=== PATIENT | female | born 1990 | race Hispanic/Latino ===

== ENCOUNTER 2022-10-05 17:46 | Emergency (ER) | payer OTHER ==
--- OUTSIDE RECORDS SUMMARY | 2022-10-05 17:49 | XMS REPORT | Continuity of Care Document ---
:1990 Author Organization [facility] t Address [address] [place] [address] Care Team Providers Name Role Phone Anna Alcaraz Primary Care Physician [phone] Anna Alcaraz Attending Clinician [phone] ANNA BRADLEY Attending Clinician Unavailable Doctor Unassigned, [place] Attending Clinician Unavailable GLENDA SCOTT Attending Clinician Unavailable Payers Payer Name Policy Type Policy Number Effective Date Expiration Date S ource Problems Condition Condition Condition Status Onset Resolution Last Treating Co mments Source Name Details Category Date Date Treatment Clinician Date Former Former Disease Active Univers tobacco tobacco 05-04 ity of use use 00:00: [address] Chlamydia Chlamydia Disease Active Uni vers trachomati trachomati 05-04 it y of s s 00:00: [place] infection infection 00 Medi bakari of lower of lower Branch genitourin genitourin amairani sites amairani sites Contracept Contracept Disease Active U nivers bernadette bernadette 8 [place] management [place] Over Over Disease Active Univers weight weight 8 ity of 00:00: [place] 00 [facility] Branch Need for Need for Disease Active Unive rs HPV HPV 8 [place] of vaccin[place] Well woman Well woman Disease Active Overview : Univers exam exam 8-10 Formattin ity of 00:00: g of this [place] 00 note Medical might be Branch different from the original. 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 Social History Social Habit Start Date Stop Date Quantity Comments Source History SDOH University o f Alcohol Frequency [place] M edical Branch History SDCA University o f Alcohol Std Drinks [facility] History [facility] University o f Alcohol Binge [place] Medic al Branch Exposure to Not sure [facility] SARS-CoV-2 (event) [facility] [place] [facility] Alcohol intake 2021-10-21 2021-10-21 .43 /d University of 00:00:00 00:00:00 [facility] [place] [facility] Cigarettes smoked 2016-09-11 2016-09-11 Univers ity of current (pack per 00:00:00 00:00:00 [facility] ) - Reported Branch Tobacco use and 2016-09-11 2016-09-11 Never used Universit y of exposure 00:00:00 00:00:00 [facility] [place] [facility] Alcohol Comment 2013-11-13 2013-11-13 socially Universit y of 00:00:00 00:00:00 [facility] [place] [facility] Tobacco Comment 2013-06-02 2013-06-02 Smokes less than Uni versity of 00:00:00 00:00:00 1 per week [facility] [place] [facility] History of tobacco 2013-05-12 Cigarette Smoker University of use 00:00:00 [facility] Sex Assigned At [birth year] Universit y of 00:00:00 00:00:00 [facility] [place] [facility] Smoking Status Start Date Stop Date Source Former smoker 2016-09-11 00:00:00 2016-09-11 00:00:00 Universi ty of [facility] [place] [facility] Medications Ordered Filled Start Stop Current Ordering Indication Dosage Frequency Signature Comments Components Source Medication Medication Date Date Medication? Clinician (SIG) Name Name norgestimat Yes [id number] 1{tbl} Take 1 Univers e-ethinyl 2-15 tablet by ity o f estradioL 00:00: mouth [place] (TRINESSA 00 daily. Medical LO) Branch 0.18/0.215/ 0.25 mg-25 mcg tablet norgestimat 2021- No 1{tbl} Take 1 U nivers e-ethinyl -15 10-21 tablet by ity of estradioL 00:00: 00:00 mouth [place] (TRINESSA 00 :00 daily. Medical [facility] 0.18/0.215/ 0.25 mg-25 mcg tablet Immunizations Ordered Filled Immunization Date Status Comments Ana klein Immunization Name Name HPV9 2017-08-16 Completed University of 00:00:00 [facility] [place] [facility] HPV9 2017-04-14 Completed University of 00:00:00 [facility] TDAP 2012-12-14 Completed University of 00:00:00 [facility] HPV 2009-03-19 Completed University of 00:00:00 [facility] Td 2006-09-06 Completed University 00:00:00 [facility] Vital Signs Vital Name Observation Time Observation Value Comments Source Systolic blood 2021-10-21 19:51:00 127 mm[Hg] [facility] Diastolic blood 2021-10-21 19:51:00 77 mm[Hg] [facility]ive [facility] Heart rate 2021-10-21 19:51:00 60 /min [facility] Body temperature 2021-10-21 19:51:00 36.67 Mónica [facility] Respiratory rate 2021-10-21 19:51:00 16 /min [facility] Body height 2021-10-21 19:51:00 165.1 cm [facility] Body weight 2021-10-21 19:51:00 73.653 kg [facility] BMI 2021-10-21 19:51:00 27.02 kg/m2 [facility] Procedures Procedure Date / Time Performed Performing Clinician Ana klein POCT TEST 2021-10-21 19:52:00 [facility] Start End Encounter Admission Attending Care Care Encounter Source Date/Time Date/Time Type Type Clinicians Facility Department ID 2022-06-25 2022-06-25 Outpatient [facility] [id number] Robbi 09:54:46 09:54:46 [id number] 2021-10-21 2021-10-21 Office ALEX Bradley [id number] Univers 13:30:00 14:48:45 Visit 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 [id number] ity of [facility] [id number] Tl as MATERNAL [id number] [facility] ical & CHILD [address] [place] [address] 2021-10-21 2021-10-21 Outpatient R [facility] [id number] Univers 13:30:00 14:48:45 ANNA thiobdeaux o [facility] 2021-10-21 2021-10-21 Outpatient R [facility] [id number] Univers 13:30:00 13:30:00 ANNASADE thibodeaux o [facility] 2021-10-21 2021-10-21 Orders Doctor OMAIRA [id number] Univers 00:00:00 00:00:00 Only Unassigned, RACHEAL [id number] ity of [place] [facility] [id number] Tl as [id number] [address] 2020-05-21 2020-05-21 [facility] [id number] Univers 15:00:00 15:00:00 GLENDA thibodeaux o [facility] Results Test Description Test Time Test Comments Results Result Comments Source POCT TEST 2021-10-21 19:52:00 Test Item Value Reference Range Interpretation Comme nts POCT PREG (test code = 1605) Negative On board controls acceptable with C Line (test code = 3574) Yes POCT PREG LOT # (test code = 3575) POCT PREG TEST DATE (test code = 3576) [facility]
[2022-10-05] MEDS ORDERED: NA CHLORIDE 0.9% 1,000 ML ONE ×2 (19:17→20:34)
[2022-10-05] MEDS ORDERED: ACETAMINOPHEN 500 MG TAB ONE (19:40)
[2022-10-05 19:44] LABS: Absolute Lymphocytes (CBC) 0.5 K/uL (0.7-4.9); Hematocrit 44.2 % (36.0-45.0); Lymphocytes % 5.2 % (15.3-44.8); MCV 87.7 fL (80-100); MPV 8.9 fL (7.6-11.3); RBC Red Blood Cell Count 5.05 M/uL (3.86-4.86)
[2022-10-05 19:58] LABS: ALT/SGPT 25 U/L (13-56); AST/SGOT 16 U/L (15-37); Albumin 4.2 g/dL (3.4-5.0); Alkaline Phosphatase 100 U/L (45-117); BUN Blood Urea Nitrogen 9 mg/dL (7-18); Bicarbonate 26 mmol/L (21-32); Bilirubin Total 0.2 mg/dL (0.2-1.0); Glomerular Filtration Rate 93 ml/min (=/>90); Glucose Level 109 mg/dL (74-106); Magnesium 1.7 mg/dL (1.6-2.4); Potassium 3.3 mmol/L (3.5-5.1); Protein, Total 8.7 g/dL (6.4-8.2); Sodium Level 137 mmol/L (136-145); Troponin High Sensitivity 3.5 pg/mL (<58.9)
[2022-10-05 19:59] LABS: Bilirubin Direct < 0.1 mg/dL (0-0.2)
[2022-10-05 20:17] LABS: SARS-COV-2 RT PCR POSITIVE (NEGATIVE)
--- NOTE | 2022-10-05 20:19 | RAD REPORT ---
EXAM DESCRIPTION: RAD - Chest Single View - 10/05/2022 7:59 pm CLINICAL HISTORY: FEVER COMPARISON: No comparisons FINDINGS: Lines: None. Lungs: Basilar airspace disease is present bilaterally. Pleural: No significant pleural effusions or pneumothorax. Cardiac: Large cardiopericardial silhouette. This may be magnified by portable technique. Mediastinum: Within normal limits. Bones: No acute fractures. Other: None IMPRESSION: Basilar airspace disease bilaterally could reflect pneumonia in the appropriate clinical setting.
[2022-10-05 20:28] LABS: Urine Blood 2+ (Negative); Urine Glucose Negative (Negative); Urine Protein Negative (Negative)
[2022-10-05 20:33] LABS: Urine Bacteria None Seen /HPF (<20); Urine Crystals Unidentified Few /HPF (None Seen); Urine Mucus Slight /HPF (None Seen)
--- NOTE | 2022-10-05 21:07 | RAD REPORT ---
EXAM DESCRIPTION: CT - Head Brain Wo Cont - 10/05/2022 8:55 pm CLINICAL HISTORY: altered mental status COMPARISON: No comparisons TECHNIQUE: All CT scans are performed using dose optimization technique as appropriate and may inclu de automated exposure control or mA/KV adjustment according to patient size. FINDINGS: No intracranial hemorrhage, hydrocephalus or extra-axial fluid collection.No areas of brai n edema or evidence of midline shift. The paranasal sinuses and mastoids are clear. The calvarium is intact. IMPRESSION: No acute intracranial abnormality.
--- NOTE | 2022-10-05 21:13 | RAD REPORT ---
EXAM DESCRIPTION: CTChest Abdomen Pelvis W Cont - 10/05/2022 8:56 pm CLINICAL HISTORY: fever, back pain COMPARISON: No comparisons TECHNIQUE: CT of the chest, abdomen, and pelvis was performed with IV contrast. All CT scans are performed using dose optimization technique as appropriate and may include automated exposure control or mA/KV adjustment according to patient size. FINDINGS: Thorax: Chest Wall: No abnormal mass Lungs: No acute abnormality. Pleura: No effusions or pneumothorax. Soha/Mediastinum: No lymphadenopathy. Aorta/Pulmonary Arteries: Unremarkable Heart: Normal size. Abdomen/Pelvis: Liver: No acute abnormality or suspicious lesions. Biliary: No biliary ductal dilatation. Stomach: No significant focal abnormality. Duodenum: No significant focal abnormality. Pancreas: No significant abnormality. Spleen: No significant abnormality. Adrenal: No suspicious lesions. Kidney/ureter: No hydronephrosis. No renal calculi. Retroperitoneum: No retroperitoneal adenopathy. Vascular: No aneurysm. Bowel: No significant focal abnormality. Normal appendix. Peritoneum: No ascites or free air. Bladder: Grossly unremarkable. Reproductive: No adnexal masses. Bones: No acute fracture. Other: n/a IMPRESSION: No acute findings within the chest, abdomen, or pelvis. No source of fever identified.
--- NOTE | 2022-10-05 23:39 | EDPHYS ---
Physician Documentation [facility] Name: Maribel Nieves Age: 32 yrs Sex: Female : 1990 Arrival Date: 10/05/2022 Time: 17:47 Bed 19 Private MD: ED Physician Lev Stern HPI: 10/05 19:10 This 32 yrs old Female presents to ER via Ambulatory with complaints of cp TWITCHING. 19:10 The patient complains of pain to the top of head and forehead. Onset: The cp symptoms/episode began/occurred today. 19:10 Associated signs and symptoms: Pertinent positives: fever, body aches. cp 19:10 Patient reports history of diabetes and admits to not taking prescribed medications. 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 - Social history:: Smoking status: Patient denies any tobacco usage or history of. ROS: 19:15 Constitutional: Positive for body aches, fever, poor PO intake. cp 19:15 Eyes: Negative for injury, pain, redness, and discharge. cp 19:15 ENT: Negative for drainage from ear(s), ear pain, sore throat, difficulty swallowing, difficulty handling secretions. 19:15 Cardiovascular: Negative for chest pain. 19:15 Respiratory: Negative for cough, shortness of breath, wheezing. 19:15 Abdomen/GI: Negative for abdominal pain, vomiting, diarrhea, constipation. 19:15 Back: Positive for pain at rest, of the mid back area. 19:15 : Negative for urinary symptoms, vaginal bleeding, vaginal discharge. 19:15 Skin: Negative for cellulitis, rash. 19:15 Neuro: Positive for headache, weakness. 19:15 All other systems are negative. Exam: 19:20 Constitutional: The patient appears in no acute distress, alert, awake, cp non-diaphoretic, well developed, well nourished, obviously ill. 19:20 Head/Face: Normocephalic, atraumatic. cp 19:20 Eyes: Periorbital structures: appear normal, Pupils: equal, round, and reactive to light and accomodation, Extraocular movements: intact throughout, Conjunctiva: normal, no exudate, no injection, Sclera: no appreciated abnormality, Lids and lashes: appear normal, bilaterally. 19:20 ENT: External ear(s): are unremarkable, Ear canal(s): are normal, clear, TM's: bulging, is not appreciated, bilaterally, dullness, bilaterally, erythema, is not appreciated, bilaterally, Nose: is normal, Mouth: Lips: moist, Oral mucosa: moist, Posterior pharynx: Airway: no evidence of obstruction, patent, Tonsils: with erythema, no enlargement, no exudate, erythema, that is mild, exudate, is not appreciated. 19:20 Neck: ROM/movement: pain, is not appreciated, limited range of motion, is not appreciated, Meningeal signs: are not present, Lymph nodes: no appreciated lymphadenopathy. 19:20 Chest/axilla: Inspection: normal. 19:20 Cardiovascular: Rate: tachycardic, Rhythm: regular, JVD: is not appreciated. 19:20 Respiratory: the patient does not display signs of respiratory distress, Respirations: normal, no use of accessory muscles, no retractions, labored breathing, is not present, Breath sounds: are clear throughout, no decreased breath sounds, no stridor, no wheezing. 19:20 Abdomen/GI: Inspection: abdomen appears normal, Palpation: abdomen is soft and non-tender, in all quadrants. 19:20 Back: pain, that is mild, of the mid back area, ROM is painful, with all movement. 19:20 Skin: cellulitis, is not appreciated, no rash present. 19:20 Neuro: Orientation: to person, place, situation, Mentation: able to follow commands, slow to respond, Motor: moves all fours, general weakness with no focal deficits, Sensation: no obvious gross deficits, Gait: is steady. 19:32 ECG was reviewed by the Attending Physician. cp Vital Signs: 18:44 BP 135 / 93; Pulse 150; Resp 20; Temp 103.8; Pulse Ox 98% ; jh5 19:35 BP 104 / 74; Pulse 122; Resp 21 S; Pulse Ox 100% on R/A; as6 20:28 BP 108 / 81; Pulse 126; Resp 15 S; Temp 100.5(O); Pulse Ox 99% on R/A; as6 21:36 BP 96 / 70; Pulse 110; Resp 18; Temp 99.7(O); Pulse Ox 99% on R/A; Weight 77.11 kg (M); kl Height 5 ft. 6 in. (167.64 cm); 22:04 BP 112 / 77; Pulse 95; Resp 16 S; Temp 98.9(O); Pulse Ox 100% on R/A; 10/06 00:00 BP 95 / 55; Pulse 94; Resp 17 S; Temp 97.7(O); Pulse Ox 100% on R/A; as6 10/05 21:36 Body Mass Index 27.44 (77.11 kg, 167.64 cm) kl MDM: 10/05 18:56 Patient medically screened. cp 19:20 Patient medically screened. willie 23:38 Data reviewed: vital signs, nurses notes, lab test result(s), EKG, radiologic studies, cp CT scan, plain films. 23:38 Consideration of Admission/Observation Escalation of care including cp admission/observation considered. I considered the following discharge prescriptions or medication management in the emergency department Medications were administered in the Emergency Department. See MAR. Care significantly affected by the following chronic conditions: Diabetes. Care significantly affected by the following Social Determinants of Health: noncompliance. Counseling: I had a detailed discussion with the patient and/or guardian regarding: the historical points, exam findings, and any diagnostic results supporting the discharge/admit diagnosis, lab results, radiology results, the need for outpatient follow up, a family practitioner, to return to the emergency department if symptoms worsen or persist or if there are any questions or concerns that arise at home. Response to treatment: the patient's symptoms have markedly improved after treatment, patient is well hydrated. VSS. Patient reports symptoms markedly improved. Will discharge to home for continued monitoring. 10/05 18:59 Order name: Basic Metabolic Panel; Complete Time: 20:00 cp 10/05 20:00 Interpretation: Normal except: K 3.3; GLUC 109. cp 10/05 18:59 Order name: CBC with Diff; Complete Time: 20:00 cp 10/05 20:00 Interpretation: Normal except: RBC 5.05; DONTRELL% 84.7; LYM% 5.2; NEUT A 8.3; LYMA 0.5. cp 10/05 18:59 Order name: LFT's; Complete Time: 20:00 cp 10/05 23:35 Interpretation: Normal except: TP 8.7; GLOB 4.5; A/G 0.9. cp 10/05 18:59 Order name: Magnesium; Complete Time: 20:00 cp 10/05 18:59 Order name: Troponin HS; Complete Time: 20:00 cp 10/05 18:59 Order name: Lactate w/ 2H reflex if indic.; Complete Time: 20:25 cp 10/05 20:25 Interpretation: Abnormal: LAC 2.4. cp 10/05 18:59 Order name: Procalcitonin; Complete Time: 20:25 cp 10/05 18:59 Order name: Blood Culture Adult (2) cp 10/05 18:59 Order name: COVID-19/FLU A+B; Complete Time: 20:25 cp 10/05 21:25 Interpretation: Reviewed. cp 10/05 18:59 Order name: Ketone, Serum; Complete Time: 20:00 cp 10/05 18:59 Order name: Urine Microscopic Only; Complete Time: 20:40 cp 10/05 20:41 Interpretation: Normal except: URBC 5-10. cp 10/05 19:01 Order name: Glucose, Ancillary Testing; Complete Time: 19:41 EDMS 10/05 20:28 Order name: Urine --Ancillary (enter results); Complete Time: 20:40 mw2 10/05 20:28 Order name: Urine Dipstick-Ancillary; Complete Time: 20:40 EDMS 10/05 20:40 Interpretation: Normal except: UBLD 2+. cp 10/05 18:59 Order name: XRAY Chest (1 view); Complete Time: 20:25 cp 10/05 18:59 Order name: EKG; Complete Time: 19:01 cp 10/05 18:59 Order name: Cardiac monitoring; Complete Time: 19:29 cp 10/05 18:59 Order name: EKG - Nurse/Tech; Complete Time: 19:29 cp 10/05 18:59 Order name: IV Saline Lock; Complete Time: 19:09 cp 10/05 18:59 Order name: Labs collected and sent; Complete Time: 19:09 cp 10/05 18:59 Order name: O2 Per Protocol; Complete Time: 19:10 cp 10/05 18:59 Order name: O2 Sat Monitoring; Complete Time: 19:10 cp 10/05 20:26 Order name: CT Head Brain wo Cont; Complete Time: 21:24 cp 10/05 21:24 Interpretation: Report reviewed. cp 10/05 20:28 Order name: CT Chest, Abdomen, Pelvis - W/Contrast; Complete Time: 21:24 cp 10/05 21:24 Interpretation: Report reviewed. cp 10/05 23:31 Order name: Lactate Sepsis 2 HR Follow-up; Complete Time: 23:34 EDMS 10/05 23:35 Interpretation: Reviewed. cp 10/05 18:59 Order name: Urine Dipstick-Ancillary (obtain specimen); Complete Time: 20:27 cp 10/05 18:59 Order name: Urine Test (obtain specimen); Complete Time: 20:27 cp EC:32 Rate is 127 beats/min. Rhythm is regular. [place] interval is normal. QRS interval is cp normal. QT interval is normal. T waves are Inverted in lead aVR. Interpreted by me. Reviewed by me. Administered Medications: 19:25 Drug: NS 0.9% 1000 ml Route: IV; Rate: 1 bolus; Site: right antecubital; as6 23:59 Follow up: Response: No adverse reaction; IV Status: Completed infusion; IV Intake: as6 1000ml 19:41 Drug: Tylenol 1000 mg Route: PO; kl 21:37 Follow up: Response: Temperature is decreased kl 20:33 Drug: NS 0.9% 1000 ml Route: IV; Rate: 1 bolus; Site: right antecubital; as6 23:59 Follow up: Response: No adverse reaction; IV Status: Completed infusion; IV Intake: as6 1000ml 23:52 Drug: Potassium Effervescent Tablet 50 mEq Route: PO; as6 23:59 Follow up: Response: No adverse reaction as6 Disposition Summary: 10/05/22 23:39 Discharge Ordered Location: Home cp Problem: new cp Symptoms: have improved cp Condition: Stable cp Diagnosis - SARS-associated coronavirus as the cause of diseases classified elsewhere cp - Diabetes mellitus due to underlying condition with other specified complication cp Followup: cp - With: Private Physician - When: 1 - 2 days - Reason: Recheck today's complaints Discharge Instructions: - Discharge Summary Sheet cp - Diabetes Mellitus and Exercise cp - Diabetes Mellitus and Nutrition, Adult cp - Aspirin and Your Heart cp - COVID-19 cp - Form - Excuse from Work, School, or Physical Activity cp - Things to Know about the COVID-19 Pandemic - [facility] cp - Living With Diabetes cp - 10 Things You Can Do to Manage Your COVID-19 Symptoms at Home - [facility] cp - COVID-19: Quarantine vs. Isolation - [facility] cp - Prevent the Spread of COVID-19 if You Are Sick - [facility] cp Forms: - Medication Reconciliation Form cp - Thank You Letter cp - Antibiotic Education cp - Prescription Opioid Use cp Prescriptions: - Paxlovid (EUA) 150 mg x 2- 100 mg Oral tablet - take 3 tablet by ORAL route 2 times per day for 5 days per package directions; cp 30 tablet; Refills: 0, Product Selection Permitted - Zofran 4 mg Oral Tablet - take 1 tablet by ORAL route every 12 hours As needed; 20 tablet; Refills: 0, cp Product Selection Permitted - Ibuprofen 800 mg Oral Tablet - take 1 tablet by ORAL route every 8 hours As needed take with food; 30 tablet; cp Refills: 0, Product Selection Permitted Signatures: Dispatcher [employer] EDRenée Miller RN Lev Navarro MD MD cha Attema, Lee, WIRELESS SALES ASSOCIATE-C WIRELESS SALES ASSOCIATE-Cla1 Lev Dillon, PA PA cp Cathy Charles, RN RN jh5 Harvey Salazar RN RN as6 Corrections: (The following items were deleted from the chart) 22:39 22:28 LACTATE+C.LAB.BRZ ordered. EDMS EDMS
--- NOTE | 2022-10-05 23:39 | ER ---
Nurse's Notes [facility] Name: Maribel Nieves Age: 32 yrs Sex: Female : 1990 Arrival Date: 10/05/2022 Time: 17:47 Bed 19 Private MD: Diagnosis: SARS-associated coronavirus as the cause of diseases classified elsewhere;Diabetes mellitus due to underlying condition with other specified complication Presentation: 10/05 18:44 Chief complaint: Patient states: I dont feel good, my head hurts, and my body hurts; i jh5 dont care for myself and i have DM x3 months and dont take anything This pt can not cognitively complete a triage; she is nodding off in triage, twitching in her left arm and doesn't respond appropriately without stimulation. Pt can answer questions appropriately when you get her attention, slow speech / slow in response. Coronavirus screen: Vaccine status: Patient reports being unvaccinated. Client denies travel out of the [place] in the last 14 days. Ebola Screen: Patient negative for fever greater than or equal to 101.5 degrees Fahrenheit, and additional compatible Ebola Virus Disease symptoms Patient denies exposure to infectious person. Patient denies travel to an Ebola-affected area in the 21 days before illness onset. Initial Sepsis Screen: Does the patient meet any 2 criteria? Temp <36.0*C (96.8*F)) or > 38.3*C (100.9*F). HR > 90 bpm. Does the patient have a suspected source of infection? Yes:. Risk Assessment: Do you want to hurt yourself or someone else? Patient reports no desire to harm self or others. 18:44 Method Of Arrival: Ambulatory 5 18:44 Acuity: SHEILA 2 jh5 19:37 Onset of symptoms is unknown. as6 Triage Assessment: 18:55 General: Appears distressed, uncomfortable, ill, slender, well groomed, well developed, jh5 Behavior is drowsy, flat, inappropriate for age, quiet. Pain: Denies pain. 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 - Social history:: Smoking status: Patient denies any tobacco usage or history of. Screenin:37 [facility] ED Fall Risk Assessment (Adult) History of falling in the last 3 months, as6 including since admission No falls in past 3 months (0 pts) Confusion or Disorientation Yes (5 pts) Score/Fall Risk Level 3 or more points = High Risk. Abuse screen: Denies threats or abuse. Denies injuries from another. Nutritional screening: No deficits noted. Tuberculosis screening: No symptoms or risk factors identified. Assessment: 19:36 General: Appears ill, Behavior is cooperative, drowsy, quiet. General: Reports feeling as6 ill for. Pain: Complains of pain in low back area. Neuro: Level of Consciousness is lethargic, able to arouse . Oriented to person, place, situation. Respiratory: Respiratory effort is even, unlabored. 20:46 General: pt able to ambulate to bathroom, gait steady and slow "I feel a little bit as6 better". 21:38 Reassessment: Patient and/or family updated on plan of care and expected duration. Pain kl level reassessed. Patient is alert, oriented x 3, equal unlabored respirations, skin warm/dry/pink. Patient states feeling better. Patient states symptoms have improved. Vital Signs: 18:44 BP 135 / 93; Pulse 150; Resp 20; Temp 103.8; Pulse Ox 98% ; jh5 19:35 BP 104 / 74; Pulse 122; Resp 21 S; Pulse Ox 100% on R/A; as6 20:28 BP 108 / 81; Pulse 126; Resp 15 S; Temp 100.5(O); Pulse Ox 99% on R/A; as6 21:36 BP 96 / 70; Pulse 110; Resp 18; Temp 99.7(O); Pulse Ox 99% on R/A; Weight 77.11 kg (M); kl Height 5 ft. 6 in. (167.64 cm); 22:04 BP 112 / 77; Pulse 95; Resp 16 S; Temp 98.9(O); Pulse Ox 100% on R/A; as6 10/06 00:00 BP 95 / 55; Pulse 94; Resp 17 S; Temp 97.7(O); Pulse Ox 100% on R/A; as6 10/05 21:36 Body Mass Index 27.44 (77.11 kg, 167.64 cm) ED Course: 10/05 17:47 Patient arrived in ED. as 18:42 Lev Dillon PA is PHCP. cp 18:42 Huang Mercado MD is Attending Physician. cp 18:55 Triage completed. jh5 18:55 Arm band placed on right wrist. jh5 19:00 Attending Physician role handed off by Huang Mercado MD cp 19:00 Lev Stern MD is Attending Physician. cp 19:00 Inserted saline lock: 20 gauge in right antecubital area, using aseptic technique. bp Blood collected. 19:01 Harvey Salazar, DEEPTHI is Primary Nurse. as6 19:37 Placed in gown. Bed in low position. Call light in reach. Side rails up X2. Client as6 placed on continuous cardiac and pulse oximetry monitoring. NIBP monitoring applied. 20:01 XRAY Chest (1 view) In Process Unspecified. EDMS 20:57 CT Head Brain wo Cont In Process Unspecified. EDMS 20:57 CT Chest, Abdomen, Pelvis - W/Contrast In Process Unspecified. EDMS 21:37 Inserted saline lock: 22 gauge in right hand, using aseptic technique. kl 22:05 No provider procedures requiring assistance completed. as6 10/06 00:00 IV discontinued, intact, bleeding controlled, No redness/swelling at site. Pressure as6 dressing applied. Administered Medications: 10/05 19:25 Drug: NS 0.9% 1000 ml Route: IV; Rate: 1 bolus; Site: right antecubital; as6 23:59 Follow up: Response: No adverse reaction; IV Status: Completed infusion; IV Intake: as6 1000ml 19:41 Drug: Tylenol 1000 mg Route: PO; kl 21:37 Follow up: Response: Temperature is decreased kl 20:33 Drug: NS 0.9% 1000 ml Route: IV; Rate: 1 bolus; Site: right antecubital; as6 23:59 Follow up: Response: No adverse reaction; IV Status: Completed infusion; IV Intake: as6 1000ml 23:52 Drug: Potassium Effervescent Tablet 50 mEq Route: PO; as6 23:59 Follow up: Response: No adverse reaction as6 Medication: 20:28 VIS not applicable for this client. as6 Intake: 23:59 IV: 1000ml; Total: 1000ml. as6 23:59 IV: 1000ml; Total: 2000ml. as6 Outcome: 21:57 Condition: stable as6 23:39 Discharge ordered by MD. estrella 10/06 00:00 Discharged to home ambulatory. as6 Discharge instructions given to patient, Instructed on discharge instructions, follow up and referral plans. medication usage, Demonstrated understanding of instructions, follow-up care, medications, Prescriptions given X 3. 00:01 Patient left the ED. as6 Signatures: Dispatcher [employer] EDMS Renée Yoder, RN RN Court Yoon Corey, PA PA cp Peltier, Brian, DEEPTHI RN Cathy Koenig RN RN 5 Harvey Salazar RN RN as6
[2022-10-05] MEDS ORDERED: POTASSIUM 25 MEQ EFFERV TAB ONE (23:49)
[2022-10-06 00:41] VITALS: O2SAT 100
[2022-10-06 01:17] VITALS: BP 95/55; TEMP 97.7
--- NOTE | 2022-10-06 16:55 | EKG ---
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
== END 2022-10-06 00:01 | disposition home or self-care (01) ==
LOC: ER 17:46
DX: U07.1 COVID-19 (principal); E11.69 Type 2 diabetes mellitus with other specified complication
CPT/HCPCS: 96361; 93005; 87040 ×2; 85025; 80048; 36415; 82010; 83735; 81025; 82947; 80076; 83605 ×2; 84484; 84145; 0240U; 70450; 71260; 74177; 71045; 96360; 99284; J7030 ×2; 81003; 81015